=== PATIENT | male | born 1990 | race Caucasian/White ===

== ENCOUNTER 2016-12-09 19:52 | Emergency (ER) | payer SELFPAY ==
[~2016-12-09 19:52] MED LIST: CLEOCIN HCL300 MG PO; FLEXERIL10 MG PO; MOTRIN600 MG PO; NO MEDS; NORCO 10/325 TA1 TAB PO; NORCO 5/325 TAB1 TAB PO
[2016-12-09] MEDS ORDERED: BACTRIM DS TAB1 EAC2 PO (21:45)
== END 2016-12-09 22:11 ==
LOC: EDMED 19:52
PROC: 0H98XZZ Drainage of Buttock Skin, External Approach (ICD-10-PCS; principal; 2016-12-09)
DX: L03.317 Cellulitis of buttock (principal); Z88.8 Allergy status to other drugs, medicaments and biological substances; F17.210 Nicotine dependence, cigarettes, uncomplicated